=== PATIENT | male | born 1990 | race Caucasian/White ===

== ENCOUNTER 2023-07-11 13:08 | Outpatient (CLI) | payer OTHER ==
--- NOTE | 2023-07-11 13:47 | Sleep Patient Instructions ---
Sleep Center Visit Summary - Patient Visit Information Reason for Visit: Initial consult for evaluation of sleep disordered breathing and other sleep issues. - Patient Instructions Instructions Attached: Sleep Study Additional Instructions: You will be completing a sleep study, either an in-lab polysomnography (PSG) or home sleep study (HST). You will follow-up in the sleep care office after the sleep study is completed to hear the results and talk about therapy, if needed. You will be called by our office staff to schedule this appointment, but you may contact us with any questions. - Clinic Information Contact: [facility] [address] [place] [address] [email or web address] T: [phone]
--- NOTE | 2023-07-11 13:52 | SLEEP CARE CONSULTATION ---
Information from patient questionnaire entered by Marylou Herr. I have reviewed and concur with the information entered by Marylou Herr. This document represents the service I personally performed and the decisions made by me, Karla Alexander ARNP. History of Present Illness Service Date and Time: 07/11/2023 1308 Reason for Visit: New patient Chief Complaint: reports: Unrefreshed sleep, Snoring, Excessive daytime sleepiness, Observed pauses in breathing, Fatigue, Frequent awakenings at night Date of Onset: 4YRS Usual bedtime: 10PM Time it takes to fall asleep: 30MIN Snores at night: Yes Observed to quit breathing while asleep: Yes Sleeps alone due to snoring: No Number of times waking at night: 1 Reasons for waking at night: reports: Snoring, Gasping for air, Other (UNKNOWN). denies: Choking Toss, Turn, or Twitch while sleeping: Yes Recalls having dreams: No (rarely remembers them) Usually gets out of bed at: 520AM; weekends 0800 Feels refreshed in the morning: No Morning headache: Yes (2-3 times a week) Sleepy or fatigued during the day: Yes Ever fallen asleep while driving: No Takes day naps: No Dreams during day naps: No Prior sleep studies: No Additional HPI information: I had the pleasure of seeing LOU JOYNER today regarding the possibility of him having a sleep disorder. His current complaints are excessive daytime sleepiness, fatigue, frequent night awakenings, observed pauses in breathing, snoring and unrefreshed sleep. He says he has been told that he stops breathing and awakens with a gasp by his and roommates during detachment. He is a snorer and snores loudly. He says he can wake him self up with his snoring even though he is a heavy sleep. He wakes up with a noe mouth every morning, feeling dehydrated. He can wake up with a headaches but thinks these are more due to being dehydrated. He says he is tired during the day but does not have time to take naps. His father has sleep apnea and uses a CPAP machine. 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 Patient is and lives in . Have you smoked in the past 12 months: No (Zyn, nicotine dip) Cigarettes per day (20/pack): 20 Years of smokin (NOT SMOKING BUT DIP ) Quit date: 05/2022 Smoking Pack Years: 10.0 Alcohol use: Yes Alcohol amount and frequency: A BEER NOT OFTEN Caffeine use: Yes Caffeine amount and frequency: EVERYDAY Family History Family history of sleep disordered breathing: Yes Family Hx Sleep Apnea: Father: Snoring, Sleep apnea - Treated Allergies and Home Medications Known drug allergies: No Drug allergies reviewed: Yes Home medication list reviewed: Yes (none) Allergy and home medication list: Allergies No Known Drug Allergies Allergy (Verified 07/11/23 13:18) Home Medications No Known Home Medications 07/11/23 [History] Review of Systems Weight gain over past 5 years: 20 Cardiovascular: denies: high blood pressure Gastrointestinal: denies: heartburn Neurological: denies: headaches Psychiatric: denies: anxiety, depression Ear/Nose/Throat: denies: tonsillectomy (adenoids removed when a child) Physical Exam Vital signs obtained and entered by: MARYLOU Alfredo MA Blood Pressure: 129/81 (RIGHT ARM) Cuff size: regular Heart Rate: 92 O2 Saturation: 95 Height: 6 ft (PER PT) Weight: 220 lb (PER PT) Body Mass Index: 29.8 BMI Classification: Overweight Neck circumference: 16.5 Mouth and throat: narrow oropharynx Soft palate: long Hard palate: normal Uvula: normal Uvula visualization: 25% Mallampati Class III Tongue: normal in size Tonsils: 1+ Neck: normal w/o lymphadenopathy or thyromegaly Heart: regular rate and rhythm Lungs: clear bilaterally Impression and Plan 1. Suspected Obstructive Sleep Apnea-Hypopnea Syndrome, as suggested by a history of loud and irregular snoring, observed cessation of breath while asleep, gasping or choking in sleep, morning headache, unrefreshed sleep and cognitive impairment. Narrow oropharynx and obesity are common predisposing factors for obstructive sleep apnea-hypopnea syndrome. I recommend proceeding to polysomnography to confirm the diagnosis and to assess severity. If the patient has significant sleep disordered breathing, a manual CPAP titration study will also be performed to find the optimal treatment pressure. I informed the patient of what the sleep studies involve and after some discussion, obtained agreement to proceed. The pathophysiology of obstructive sleep apnea-hypopnea syndrome was discussed with the patient and health risks of cardiovascular and cerebrovascular disease if not treated. Risks of drowsy driving discussed in detail and patient advised to avoid long distance driving and to ticket puller at the first sign of drowsiness. Patient agreed to plan. * Schedule polysomnography +- manual CPAP titration study and return in 1-2 weeks after the study to discuss result and initiate therapy. * Avoid long distance driving or driving when feeling sleepy. * Avoid alcohol, sedative and muscle relaxant around bedtime. * Attempt to lose weight. * Review instructions provided by trained office staff on how to prepare for the sleep study. * Return for follow-up after sleep study completed. Counseling Topics: Weight loss health impact Follow up with Sleep Care in: other (after sleep study) Plan: PSG Visit Type: In Office Time Spent with Patient (minutes): 30 Provider Statement: I spent 100% of the Face to Face Visit with the patient with greater than 50% spent counseling the patient and coordination of care.
[2023-07-11 14:02] VITALS: BP 129/81; O2SAT 95
== END 2023-07-11 13:09 | disposition home or self-care (01) ==
LOC: SC 13:08
PROVIDERS: ATTEND Nurse Practitioner Family
DX: R06.83 Snoring (principal); R06.81 Apnea, not elsewhere classified; R51.9 Headache, unspecified; R41.89 Other symptoms and signs involving cognitive functions and awareness; Z72.0 Tobacco use
CPT/HCPCS: 99203; 99212

== ENCOUNTER 2023-08-09 19:31 | Outpatient (CLI) | payer OTHER | END 2023-08-09 19:32 | disposition home or self-care (01) | LOC: SC 19:31 | PROVIDERS: ATTEND Nurse Practitioner Family | DX: G47.33 Obstructive sleep apnea (adult) (pediatric) (principal) | CPT/HCPCS: 95810 ==

== ENCOUNTER 2023-08-30 08:58 | Outpatient (CLI) | payer OTHER ==
--- NOTE | 2023-08-30 09:42 | Sleep Patient Instructions ---
Sleep Center Visit Summary - Patient Visit Information Reason for Visit: Sleep study follow-up - Patient Instructions Instructions Attached: CPAP Additional Instructions: You are being started on CPAP therapy with pressure setting at 4-15 cmH2O. You will need to call the sleep care office to set up your follow up once you have your CPAP machine to check compliance and response to therapy at that time. You may call the office with any concerns about pressure feeling too low or too much for adjustment, if needed. You should contact DME supplier for any questions or concerns about mask or equipment. Please call office to schedule a follow up appointment in the sleep care office one month after obtaining new device. - Clinic Information Contact: [facility] [address] [place] [address] [email or web address] T: [phone]
--- NOTE | 2023-08-30 09:43 | SLEEP CARE CONSULTATION ---
Information from patient questionnaire entered by Marylou Herr. I have reviewed and concur with the information entered by Marylou Herr. This document represents the service I personally performed and the decisions made by me, Karla Alexander ARNP. History of Present Illness Service Date and Time: 08/30/2023 0858 Initial [place] Sleepiness Scale score: 3 (07/11/23) Current [place] Sleepiness Scale score: 3 (08/30/23) Additional HPI information: LOU JOYNER returns for follow up and results of the recently performed polysomnography. The sleep study showed mild obstructive sleep apnea with an average AHI of 10.5 and shanta oxygen saturation of 84%. I explained the pathophysiology behind obstructive sleep apnea. We then spent quite a bit of time discussing different treatment options. For mild obstructive sleep apnea, surgery and oral appliance are alternatives to nasal CPAP therapy but in moderate or severe cases, nasal CPAP is the most effective and reliable treatment. Because apnea is primarily in supine position, then positional management therapy could be effective. Methods discussed such as positioning with pillows, using a T-shirt with tennis balls in the back or commercial products that have a pillow format on back to prevent supine sleep. I reviewed the impact of weight changes on sleep apnea and strongly recommended losing weight. After some discussion, the patient opted to go with the nasal CPAP therapy. Nasal autoCPAP set at 4-15 cmH20 will be ordered with rationale explained. A manual titration study will be ordered if unable to find optimal pressure with office adjustments. I explained how CPAP machine works and what to expect when using the machine. Using CPAP every night in order to get used to it was emphasized. Patient advised to put CPAP mask on before getting into bed so as not to fall asleep without CPAP. To assist acclimation to CPAP use, it could also be used for a short time during day while reading or watching TV. The patient was instructed to call the CPAP supplier to discuss any mechanical problem that may occur. If the mask given is uncomfortable or is difficult to keep on through the night even with adjustment, contact the CPAP supplier as many will replace with another mask style if notified before 30 days. If snoring or perceives is not getting enough air or too much air from the machine, notify this office. Patient counseled not drink alcohol less than 4 hours before bedtime as it can increase snoring and apnea. Patient was cautioned about risks of drowsy driving until sleepiness symptoms resolve. Patient denies drowsy driving. Sleep Study - Results Type of Sleep Study: Polysomnography (COMPLETED 08/09/23) Prior sleep studies: No Polysomnography/Home Sleep Study results: IMPRESSION: The quality of the study is good. The patient had normal sleep efficiency. Except for mild sleep fragmentation, the sleep architecture was normal. Respiratory monitoring showed mild obstructive sleep apneahypopnea (AHI = 10.5) associated with frequent arousals, oxyhemoglobin desaturation and mild hypoxia (shanta oxygen saturation of 84%). The respiratory events occurred almost exclusively during supine sleep (supine AHI = 39.8; non-supine = 0.20). No audible snore.. There was no significant periodic leg movement of sleep. Cardiac rhythm was normal sinus rhythm without significant arrhythmia. No abnormal behavior (parasomnia) observed during the night. Allergies and Home Medications Known drug allergies: No Drug allergies reviewed: Yes Home medication list reviewed: Yes (no changes) Allergy and home medication list: Allergies No Known Drug Allergies Allergy (Verified 07/11/23 13:18) Review of Systems Review of systems same as previous: Yes (NO CHANGE) Physical Exam Vital signs obtained and entered by: MARYLOU Alfredo MA Blood Pressure: 141/88 (LEFT ARM) Cuff size: long Heart Rate: 74 O2 Saturation: 95 Height: 6 ft (PER PT) Weight: 230 lb 6.4 oz Body Mass Index: 31.2 BMI Classification: Obese Impression and Plan 1. Obstructive Sleep Apnea-Hypopnea Syndrome, mild, with lowest oxygen saturation of 84%. Obviously this is the cause of the patients symptoms of unrefreshed sleep, and excessive daytime sleepiness. As mentioned above, the patient will be started on nasal autoCPAP therapy with pressure set at 4-15 cmH2 O. A manual titration study will be completed if unable to find optimal treatment pressure with office adjustments. Compliance guidelines also reviewed. A copy of compliance guidelines will be given for reference at check out. Because the apnea is more severe supine, I instructed to avoid sleeping supine using pillow positioning until able to start CPAP use. 2. Hypoxemia, mild, with a shanta oxygen saturation of 84% and 10.8 minutes spent under 90%. The baseline oxygen saturation was normal with an average oxygen saturation of 92%. 3. Obesity, unspecified. Currently patients BMI is 31.2. Obesity increases the risk of apnea, CPAP pressure requirements and overall health risks especially cardiovascular and diabetes. Thus patient is advised to lose weight. * Nasal auto CPAP therapy, pressure at 4-15 cmH2O. * Attempt to lose weight. * Avoid alcohol consumption near bedtime. * Avoid supine sleep until using CPAP. * The patient is again cautioned about driving until sleepiness completely resolves. * Return one month after CPAP obtained. I will assess response to therapy and compliance at that time. Counseling Topics: Weight loss health impact Prescriptions: Auto CPAP Plan: Compliance follow up Visit Type: In Office Time Spent with Patient (minutes): 21 Provider Statement: I spent 100% of the Face to Face Visit with the patient with greater than 50% spent counseling the patient and coordination of care.
[2023-08-30 09:49] VITALS: BP 141/88; O2SAT 95
== END 2023-08-30 08:59 | disposition home or self-care (01) ==
LOC: SC 08:58
PROVIDERS: ATTEND Nurse Practitioner Family
DX: G47.33 Obstructive sleep apnea (adult) (pediatric) (principal); E66.9 Obesity, unspecified; Z68.31 Body mass index [BMI] 31.0-31.9, adult
CPT/HCPCS: 99212; 99213